=== PATIENT | female | born 1970 | race Caucasian/White ===

== ENCOUNTER 2016-04-24 16:36 | Emergency (ER) | payer OTHER ==
[~2016-04-24] VITALS: Ht 162.6 cm; Wt 56.7 kg
[~2016-04-24 16:36] MED LIST: AMBIEN5 M1 PO; IBUPROFEN600 M1 PO; MOBIC15 MG PO; SERTRALINE HCL100 MG PO; SERTRALINE HCL50 MG PO; TRAZODONE HCL100 M1 PO; WELLBUTRIN XL150 M2 PO; WELLBUTRIN XL300 M2 PO; XANAX0.25 M1 PO
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
[2016-04-24 17:37] LABS: ABSOLUTE BASOPHIL COUNT 0 /CUMM (0.0-0.2); ABSOLUTE EOSINOPHIL COUNT 0 /CUMM (0.0-0.7); ABSOLUTE GRANULOCYTE CT 3.1 /CUMM (1.4-6.5); ABSOLUTE LYMPH COUNT 1.9 /CUMM (1.2-3.4); ABSOLUTE MONOCYTE COUNT 0.3 /CUMM (0.10-0.60); BASOPHIL % 0.5 % (0.0-2.0); EOSINOPHIL % 0.7 % (0-5); GRANULOCYTE % 57.8 % (42.2-75.2); HEMATOCRIT 41.6 % (37-47); MEAN CORPUSCULAR HGB 33.6 PG (27.0-31.0); MEAN CORPUSCULAR HGB CONC 34.2 G/DL (33.0-37.0); MEAN CORPUSCULAR VOLUME 98.2 FL (81.0-99.0); PLATELET COUNT 249 /CUMM (130-400); RBC DISTRIBUTION WIDTH 13.6 % (11.5-14.5); RED BLOOD CELL CT 4.24 /CUMM (4.20-5.40); WHITE BLOOD CELL COUNT 5.3 /CUMM (4.8-10.8)
[2016-04-24] MEDS ORDERED: SOOLANTRA30 GM TOP (17:55)
[2016-04-24] MEDS ORDERED: DEXTROAMP-AMPHE20 MG PO (17:56)
[2016-04-24] MEDS ORDERED: VITAMIN D250000 UNIT PO (17:56)
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
[2016-04-25 09:33] VITALS: BP 143/94
== END 2016-04-25 09:47 ==
LOC: ERH 16:36
PROVIDERS: Physician Assistant Medical
DX: R45.851 Suicidal ideations (principal); F10.10 Alcohol abuse, uncomplicated; F32.9 Major depressive disorder, single episode, unspecified
CPT/HCPCS: 80307; 81025; G0463; G0480